=== PATIENT | female | born 1930 | race Caucasian/White ===

== ENCOUNTER 2018-03-22 13:05 | Inpatient (IN) | payer SELFPAY ==
[2018-03-22 13:35] LABS: ADD MAN DIFF? NO
[2018-03-22 13:40] LABS: WHITE BLOOD COUNT 9.7 10^3/ul (4.8-10.8)
[2018-03-22 13:40] LABS: ABNORMAL IP MESSAGE 1; EOSINOPHILS % 0.1 % (0.0-7.0); HEMATOCRIT 32.2 % (37.0-47.0); HEMOGLOBIN 10.8 g/dl (12.0-16.0); LYMPHOCYTES # 0.6 10^3/ul (0.8-2.9); LYMPHOCYTES % 5.8 % (15.0-51.0); MEAN CORPUSCULAR HEMOGLOBIN 32.6 pg (29.0-33.0); MEAN CORPUSCULAR HGB CONC 33.5 g/dl (32.0-37.0); MEAN CORPUSCULAR VOLUME 97.3 fl (82.0-101.0); MEAN PLATELET VOLUME 12.3 fl (7.4-10.4); MONOCYTE # 0.7 10^3/ul (0.3-0.9); MONOCYTES % 7.1 % (0.0-11.0); NEUTROPHIL # 8.4 10^3/ul (1.6-7.5); NEUTROPHILS % 86.7 % (39.0-77.0); PLATELET COUNT 126 10^3/UL (140-415); RED BLOOD COUNT 3.31 10^6/ul (4.20-5.40); RED CELL DISTRIBUTION WIDTH 13.1 % (11.5-14.5)
[2018-03-22] MEDS: morphine 2 MG INJ IV (13:43)
[2018-03-22] MEDS: ONDANSETRON 4 MG INJ IV (13:44)
[2018-03-22 13:45] LABS: POSITIVE DIFF @See below
[2018-03-22 14:00] LABS: INR 0.98; PROTIME 13.1 Sec (11.9-14.9)
[2018-03-22 14:01] LABS: ALANINE AMINOTRANSFERASE 19 IU/L (13-69); ALBUMIN 3.9 g/dl (3.3-4.9); ALKALINE PHOSPHATASE 119 IU/L (42-121); ANION GAP 11 (5-13); ASPARTATE AMINO TRANSFERASE 31 IU/L (15-46); BILIRUBIN,INDIRECT 0.7 mg/dl (0-1.1); BILIRUBIN,TOTAL 0.7 mg/dl (0.2-1.3); BLOOD UREA NITROGEN 34 mg/dl (7-20); CALCIUM 8.9 mg/dl (8.4-10.2); CARBON DIOXIDE 22 mmol/L (21-31); CHLORIDE 99 mmol/L (97-110); GLUCOSE 119 mg/dl (70-220); LIPASE 69 U/L (23-300); POTASSIUM 4.8 mmol/L (3.5-5.1); SODIUM 132 mmol/L (135-144); TOTAL PROTEIN 6.9 g/dl (6.1-8.1)
[2018-03-22 15:00] LABS: B-TYPE NATRIURETIC PEPTIDE 4160 PG/ML (0-450)
[2018-03-22] MEDS ORDERED: NACL 0.9% 3 ML SYG IV (16:30)
[2018-03-22 18:01] LABS: TROPONIN-I 0.141 ng/ml (0.000-0.120)
[2018-03-22] MEDS ORDERED: HEPARIN 5,000 UNIT/0.5 ML VIAL (21:14)
[2018-03-22] MEDS: ACETAMINOPHEN 325 MG TAB PO (21:17)
[2018-03-22] MEDS: LOSARTAN 50 MG TAB PO (21:17)
[2018-03-22] MEDS: HEPARIN 5,000 UNIT/1 ML VIAL SC (21:23)
[2018-03-23 01:07] LABS: ADD UMIC YES; UR ASCORBIC ACID NEGATIVE (NEGATIVE); UR BACTERIA FEW /HPF (NONE SEEN); UR BILIRUBIN (Dip) NEGATIVE (NEGATIVE); UR BLOOD (Dip) 1+ mg/dL (NEGATIVE); UR CLARITY CLOUDY (CLEAR); UR COLOR YELLOW (YELLOW); UR GLUCOSE (Dip) NEGATIVE (NEGATIVE); UR KETONES (Dip) NEGATIVE (NEGATIVE); UR LEUKOCYTE ESTERASE (Dip) 3+ Leu/ul (NEGATIVE); UR NITRITE (Dip) NEGATIVE (NEGATIVE); UR RBC 1 /HPF (0-5); UR SPECIFIC GRAVITY (Dip) 1.009 (1.003-1.030); UR SQUAMOUS EPITHELIAL CELL FEW /HPF (FEW); UR TOTAL PROTEIN (Dip) NEGATIVE (NEGATIVE); UR UROBILINOGEN (Dip) NEGATIVE (NEGATIVE); UR WBC 88 /HPF (0-5)
[2018-03-23 01:58] LABS: TROPONIN-I 0.127 ng/ml (0.000-0.120)
[2018-03-23] MEDS ORDERED: HEPARIN 5,000 UNIT/0.5 ML VIAL (05:01)
[2018-03-23] MEDS: PANTOPRAZOLE (EC) 40 MG TAB PO (05:12)
[2018-03-23 05:36] LABS: ADD MAN DIFF? NO
[2018-03-23 05:42] LABS: WHITE BLOOD COUNT 7.1 10^3/ul (4.8-10.8)
[2018-03-23 05:42] LABS: ABNORMAL IP MESSAGE 1; BASOPHILS % 0.3 % (0.0-2.0); EOSINOPHILS # 0.1 10^3/ul (0.0-0.5); EOSINOPHILS % 0.8 % (0.0-7.0); HEMATOCRIT 32.8 % (37.0-47.0); HEMOGLOBIN 10.8 g/dl (12.0-16.0); LYMPHOCYTES # 0.7 10^3/ul (0.8-2.9); LYMPHOCYTES % 10.1 % (15.0-51.0); MEAN CORPUSCULAR HEMOGLOBIN 32.8 pg (29.0-33.0); MEAN CORPUSCULAR HGB CONC 32.9 g/dl (32.0-37.0); MEAN CORPUSCULAR VOLUME 99.7 fl (82.0-101.0); MEAN PLATELET VOLUME 13.1 fl (7.4-10.4); MONOCYTE # 0.6 10^3/ul (0.3-0.9); MONOCYTES % 8.9 % (0.0-11.0); NEUTROPHIL # 5.6 10^3/ul (1.6-7.5); NEUTROPHILS % 79.5 % (39.0-77.0); PLATELET COUNT 123 10^3/UL (140-415); RED BLOOD COUNT 3.29 10^6/ul (4.20-5.40); RED CELL DISTRIBUTION WIDTH 13.3 % (11.5-14.5)
[2018-03-23 05:43] LABS: POSITIVE DIFF @See below
[2018-03-23] MEDS: HEPARIN 5,000 UNIT/1 ML VIAL SC (05:56)
[2018-03-23 06:14] LABS: ALANINE AMINOTRANSFERASE 15 IU/L (13-69); ALBUMIN 3.7 g/dl (3.3-4.9); ALBUMIN/GLOBULIN RATIO 1.48; ALKALINE PHOSPHATASE 110 IU/L (42-121); ANION GAP 10 (5-13); ASPARTATE AMINO TRANSFERASE 28 IU/L (15-46); BILIRUBIN,INDIRECT 0.5 mg/dl (0-1.1); BILIRUBIN,TOTAL 0.5 mg/dl (0.2-1.3); BLOOD UREA NITROGEN 31 mg/dl (7-20); CALCIUM 8.9 mg/dl (8.4-10.2); CARBON DIOXIDE 24 mmol/L (21-31); CHLORIDE 98 mmol/L (97-110); CREATININE 1.83 mg/dl (0.44-1.00); GLUCOSE 108 mg/dl (70-220); PHOSPHORUS 3.7 mg/dl (2.5-4.9); POTASSIUM 4.7 mmol/L (3.5-5.1); SODIUM 132 mmol/L (135-144); TOTAL PROTEIN 6.2 g/dl (6.1-8.1)
[2018-03-23 06:15] LABS: FREE THYROXINE INDEX (Calc) 2.22 ug/ml (0.65-3.89); T3 UPTAKE 41.1 % (23.5-40.5); T4 (THYROXINE) 5.4 ug/dl (5.5-11.0)
[2018-03-23 07:36] LABS: HEMOGLOBIN A1C 5.6 % (0-5.9)
[2018-03-23] MEDS: ONDANSETRON 4 MG INJ IV (09:02)
[2018-03-23] MEDS: ACETAMINOPHEN 325 MG TAB PO (09:02)
[2018-03-23] MEDS: ASPIRIN (EC) 81 MG TAB PO (09:02)
[2018-03-23] MEDS: FUROSEMIDE 40 MG TAB PO (09:03)
[2018-03-23] MEDS: LOSARTAN 50 MG TAB PO (09:03)
[2018-03-23] MEDS: TRIMETHOPRIM/SULFAMETHOX (SS) TAB PO (10:59)
== END 2018-03-23 12:41 | disposition home or self-care (01) | DRG 689 ==
LOC: E/R 13:05 → 6WM 15:09
DX: N39.0 Urinary tract infection, site not specified (principal); I50.23 Acute on chronic systolic (congestive) heart failure; I10 Essential (primary) hypertension; I11.0 Hypertensive heart disease with heart failure
CPT/HCPCS: 36415; 71045; 74176; 80053; 81001; 83036; 83690; 83735; 83880; 84100; 84436; 84479; 84484; 85025; 85610; 87086; 93005; 93306; 96374; 96375; 99285-25